=== PATIENT | female | born 1960 | race Caucasian/White ===

== ENCOUNTER → 2024-05-19 08:07 | Outpatient (REF) | payer SELFPAY | LOC: HWRAD 08:07 | PROVIDERS: ATTENDING PHYSICIAN Internal Medicine Interventional Cardiology; FAMILY PHYSICIAN Family Medicine | DX: I38 Endocarditis, valve unspecified (principal); R07.89 Other chest pain; E78.5 Hyperlipidemia, unspecified | CPT/HCPCS: 75571 ==